=== PATIENT | male | born 1960 | race Caucasian/White ===

== ENCOUNTER 2017-05-23 09:47 | Day surgery (SDC) | payer BC ==
[2017-05-23] MEDS: IV RINGERS,LACTATED 1000ML 1,000 ML IV (07:00)
[~2017-05-23 09:47] MED LIST: BUPIVACAINE MPF 0.5% 30 ML VIAL.; HYDROmorphone 2 MG/ML VIAL IV; LIDOCAINE 1% PF 2 ML VIAL. ID; MORPHINE SULFATE 2 MG/ML DISP.SYRIN. IV; ONDANSETRON PF 4 MG/2 ML VIAL. IV; fentaNYL PF VIAL 100 MCG/2 ML VIAL IV
[2017-05-23] MEDS ORDERED: PROPOFOL 20 ML IV (10:39)
[2017-05-23] MEDS ORDERED: ROCURONIUM 50 MG/5 ML VIAL. (10:39)
[2017-05-23] MEDS ORDERED: LIDOCAINE 1% PF 5 ML VIAL. (10:39)
[2017-05-23] MEDS ORDERED: fentaNYL PF VIAL 100 MCG/2 ML VIAL ×2 (10:40→12:19)
[2017-05-23] MEDS ORDERED: SUCCINYLCHOLINE 200 MG/10 ML VIAL. (10:48)
[2017-05-23] MEDS ORDERED: ONDANSETRON PF 4 MG/2 ML VIAL. ×2 (11:27→11:40)
[2017-05-23] MEDS ORDERED: DEXAMETHASONE SOD PHOS 20 MG/5 ML VIAL. (11:27)
[2017-05-23] MEDS ORDERED: PHENYLEPHRINE in 0.9% NACL PF 1 MG/10 ML SYRINGE. IV (11:27)
[2017-05-23] MEDS: BUPIVAC MPF-EPI 0.75%-1:200000 30 ML VIAL. (11:32)
[2017-05-23] MEDS: BACITRACIN 50,000 UNIT in IV NORMAL SALINE 500ML BAG 500 ML IRR (11:32)
[2017-05-23] MEDS ORDERED: KETOROLAC 30 MG/ML INJ FOR OR. INJ (11:40)
[2017-05-23] MEDS ORDERED: SEVOFLURANE 61 TO 120 MINUTES. IH (12:11)
[2017-05-23] MEDS: PROCHLORPERAZINE 10 MG/2 ML VIAL. IV (13:25)
[2017-05-23] MEDS: fentaNYL PF VIAL 100 MCG/2 ML VIAL IV (13:25)
[2017-05-23] MEDS: oxyCODONE/APAP 5/325 1 TAB TABLET PO (13:42)
== END 2017-05-23 14:48 | disposition home or self-care (01) ==
LOC: SURG 09:47
DX: K40.90 Unilateral inguinal hernia, without obstruction or gangrene, not specified as recurrent (principal); E66.9 Obesity, unspecified; Z68.32 Body mass index [BMI] 32.0-32.9, adult; Z98.890 Other specified postprocedural states; Z72.0 Tobacco use
CPT/HCPCS: 49505; 88302; C1769; C1781; J0330; J0690; J0780; J1100; J1885; J2370; J2405; J2704; J3010; J3490; J7040; J7120